=== PATIENT | female | born 1990 | race Caucasian/White ===

== ENCOUNTER 2023-03-09 09:30 | Emergency (ER) | payer OTHER, SELFPAY ==
--- NOTE | ~2023-03-09 | XR_ITS ---
EXAMINATION: XR foot RT min 3V DATE: 03/09/2023 10:04 INDICATION: Right foot pain. TECHNIQUE: 4 views of right foot were obtained. COMPARISON: None. FINDINGS: Bone alignment is normal. No fracture. There is mild osteoarthritis of first interphalangea l joint. IMPRESSION: 1. Mild osteoarthritis of first interphalangeal joint. Reviewed, dictated and finalized at location A.
[2023-03-09 09:33] VITALS: BP 125/64; PULSE 61; RESP 18; TEMP 36.4; O2SAT 100
--- NOTE | 2023-03-09 10:25 | ED.EXTPRO ---
HPI - Extremity Problem General Chief complaint: Extremity Problem,Nontraumatic Stated complaint: right foot pain Time Seen by Provider: 03/09/23 10:20 History of Present Illness HPI Narrative: 32-year-old female reports for evaluation of right foot pain x1 month. Patient states the pain starts in her heel and extends up into her toes on the plantar aspect, she also reports tightness into her right calf. She has not been evaluated for this before. States the pain is worse after she has been walking on it. She has not taken anything for pain. She denies known injury to the foot, rashes, fever. Related Data Allergies Allergy/AdvReac Type Severity Reaction Status Date / Time No Known Allergies Allergy Verified 03/09/23 09:45 Review of Systems Review of Systems: CONSTITUTIONAL: Denies fever, chills EYES: Denies visual changes, redness, or discharge. ENT: Denies rhinorrhea, congestion, sore throat, or otalgia. CARDIOVASCULAR: Denies chest pain, palpitations, or edema. RESPIRATORY: Denies cough or dyspnea. GASTROINTESTINAL: Denies abdominal pain, nausea, vomiting, or diarrhea. GENITOURINARY: Denies dysuria or hematuria. SKIN: Denies rash or itching. MUSCULOSKELETAL: See HPI NEUROLOGIC: Denies headache, numbness, dizziness, or weakness. PSYCHIATRIC: Denies anxiety or depression. [facility] Social History Social History Smoking status: Never smoker Second hand tobacco smoke exposure: No Alcohol intake: never Exam Narrative: GENERAL: Well-appearing, in no acute distress. HEAD: Normocephalic EYES: PERRLA ENT: Nares clear. Mucous membranes moist. Oropharynx without tonsillar hypertrophy exudate or other lesions. NECK: Supple. CHEST: No respiratory distress. Clear to auscultation, no adventitious breath sounds. HEART: Regular rate and rhythm. No murmur heard. Normal peripheral pulses. ABDOMEN: Soft, nontender, normal active bowel sounds. EXTREMITIES: RLE: Tenderness to the calcaneus and plantar fascia. No calf tenderness, edema, negative Homans' sign. No overlying skin changes. Full range of motion of ankle and toes. DP pulses 2+, cap refill less than 2. Sensation intact. SKIN: Warm, dry, no rash. NEURO: No focal deficits. Alert and oriented x3. PSYCH: Normal mood and affect. Course Vital Signs Vital signs: Vital Signs Temperature 97.6 F 03/09/23 09:33 Pulse Rate 61 03/09/23 09:33 Respiratory Rate 18 03/09/23 09:33 Blood Pressure 125/64 03/09/23 09:33 Pulse Oximetry 100 03/09/23 09:33 Oxygen Delivery Room Air 03/09/23 09:33 Temperature 97.6 F 03/09/23 09:33 Pulse Rate 61 03/09/23 09:33 Respiratory Rate 18 03/09/23 09:33 Blood Pressure 125/64 03/09/23 09:33 Pulse Oximetry 100 03/09/23 09:33 Oxygen Delivery Room Air 03/09/23 09:33 MDM - Extremity (Nontraumatic) MDM Narrative Medical decision making narrative: 32-year-old female reports for evaluation of right foot pain x1 month. Vital stable. Exam reveals tenderness to the calcaneus and overlying the plantar fascia. No edema, negative Homans. Exam consistent with plantar fasciitis. 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 Patient received Tylenol, Motrin in the ED. She requested an Nito bandage which was provided. Advised patient to wear supportive shoes or get inserts, rest, ice, take Tylenol and ibuprofen for pain, stretch calves and follow-up with PCP within the following week. Strict ED return precautions discussed. Patient agreeable to plan verbalized understanding. Discharged in stable condition. Discharge Plan Discharge Clinical Impression: Plantar fasciitis of right foot Patient Disposition: Home, Self-Care Condition: Stable Instructions: Antibiotic Form, Plantar Fasciitis (ED), Plantar Fasciitis Exercises (ED) Additional Instructions: Your evaluated in the emergency department for ri
[2023-03-09] MEDS: IBUPROFEN 600 MG TABLET PO (10:40)
[2023-03-09] MEDS: ACETAMINOPHEN 500 MG TABLET 1000 MG PO (10:40)
== END 2023-03-09 10:45 | disposition home or self-care (01) ==
PROVIDERS: Emergency Provider Physician Assistant
DX: M72.2 Plantar fascial fibromatosis (principal)
CPT/HCPCS: 73630; 99283; A9270

== ENCOUNTER 2024-03-16 03:42 | Emergency (ER) | payer OTHER, SELFPAY ==
--- NOTE | ~2024-03-16 | XR_ITS ---
XR ankle RT min 3V DATE: 03/16/2024 04:24 INDICATION: Twisted right ankle. Severe pain and swelling TECHNIQUE: 4 views COMPARISON: None FINDINGS: There is severe lateral soft tissue swelling of the ankle. No fracture or dislocation of th e ankle or disruption of the ankle mortise is detected. IMPRESSION: Severe lateral soft tissue swelling; no fracture or dislocation Reviewed, dictated and finalized at location A.
[2024-03-16 03:42] VITALS: BP 119/68; PULSE 78; RESP 18; TEMP 36.9; O2SAT 100
[2024-03-16] MEDS: ACETAMINOPHEN 500 MG TABLET 1000 MG PO (04:19)
[2024-03-16] MEDS: IBUPROFEN 400 MG TABLET 800 MG PO (04:19)
[2024-03-16 05:04] VITALS: BP 116/77; PULSE 78; RESP 18; O2SAT 100
--- NOTE | 2024-03-16 05:56 | ED.GENADULT ---
HPI - General Adult General Chief complaint: Extremity Injury, Lower Stated complaint: fall Time Seen by Provider: 03/16/24 03:59 History of Present Illness HPI narrative: 33-year-old female presenting with right ankle pain. Patient was going on the stairs when her dog tripped her from behind. She fell down the stairs and rolled her ankle. She notes significant swelling. She is unable to bear weight. no other injuries. Related Data Allergies Allergy/AdvReac Type Severity Reaction Status Date / Time No Known Allergies Allergy Verified 03/16/24 03:46 [facility] Social History Social History Smoking status: Never smoker Second hand tobacco smoke exposure: No Alcohol intake: never Exam Narrative: APPEARANCE: No apparent distress. Head: atraumatic. EYES: EOMI, NOSE: Atraumatic NECK: Trachea midline RESPIRATORY: No increased rate of breathing CARDIOVASCULAR: RRR, ABDOMINAL: Non-distended MUSCULOSKELETAl: focal exam of the right lower extremity revealed significant soft tissue swelling to the lateral portion the right ankle. Cap refill less than 2 seconds. Strong pedal pulses. Sensation intact NEURO: Alert. Moving 4/4 extremities SKIN:: Warm, dry. Normal color PSYCHIATRIC: Normal affect Course Vital Signs Vital signs: Vital Signs Temperature 98.4 F 03/16/24 03:42 Pulse Rate 78 03/16/24 03:42 Respiratory Rate 18 03/16/24 03:42 Blood Pressure 119/68 03/16/24 03:42 Pulse Oximetry 100 03/16/24 03:42 Oxygen Delivery Room Air 03/16/24 03:42 Temperature 98.4 F 03/16/24 03:42 Pulse Rate 78 03/16/24 05:04 Respiratory Rate 18 03/16/24 05:04 Blood Pressure 116/77 03/16/24 05:04 Pulse Oximetry 100 03/16/24 05:04 Oxygen Delivery Room Air 03/16/24 03:42 Medical Decision Making [facility] Narrative Medical decision making narrative: -Course: 33-year-old female presenting with ankle pain and swelling. X-rays negative for fracture. Patient treated with Motrin Tylenol. Given crutches instructed to follow-up with primary care physician for further management. -DDX includes but is not limited to: ankle sprain, ankle fracture -Independent interpretation of studies: x-ray negative fracture -Interventions: Motrin, Tylenol -Shared decision making / Disposition: discharge -RX Motrin Tylenol Vital Signs Vital Signs: Vital Signs Temperature 98.4 F 03/16/24 03:42 Pulse Rate 78 03/16/24 03:42 Respiratory Rate 18 03/16/24 03:42 Blood Pressure 119/68 03/16/24 03:42 Pulse Oximetry 100 03/16/24 03:42 Oxygen Delivery Room Air 03/16/24 03:42 Temperature 98.4 F 03/16/24 03:42 Pulse Rate 78 03/16/24 05:04 Respiratory Rate 18 03/16/24 05:04 Blood Pressure 116/77 03/16/24 05:04 Pulse Oximetry 100 03/16/24 05:04 Oxygen Delivery Room Air 03/16/24 03:42 Discharge Plan Discharge Clinical Impression: Ankle sprain and strain Patient Disposition: Home, Self-Care Condition: Stable Instructions: Antibiotic Form, Ankle Sprain (DC) Additional Instructions: You were seen in the emergency department for ankle sprain. Use Motrin Tylenol for pain. Use crutches as needed. Please follow-up with primary care physician for further management. Return if develops severe pain ankle or loss of sensation or weakness. Prescriptions: New ibuprofen 800 mg tablet 800 mg PO TID PRN (Reason: pain) 7 Days Qty: 21 0RF acetaminophen 500 mg tablet 1,000 mg PO TID PRN (Reason: bobby) 7 Days Qty: 42 0RF Follow-up/Referrals: PHYSICIAN,MOLDING MACHINE TENDER [Primary Care Provider] -
[2024-03-16 06:43] VITALS: BP 110/82; PULSE 76; RESP 16; O2SAT 100
== END 2024-03-16 06:45 | disposition home or self-care (01) ==
PROVIDERS: Emergency Provider Emergency Medicine
DX: S93.401A Sprain of unspecified ligament of right ankle, initial encounter (principal); S96.911A Strain of unspecified muscle and tendon at ankle and foot level, right foot, initial encounter; W54.1XXA Struck by dog, initial encounter; W10.9XXA Fall (on) (from) unspecified stairs and steps, initial encounter
CPT/HCPCS: 73610; 99283; A9270